=== PATIENT | female | born 1990 | race Two or more races ===

== ENCOUNTER 2021-12-12 16:22 | Emergency (ER) | payer SELFPAY ==
[2021-12-12] MEDS ORDERED: Sodium Chloride 0.9% 10 ML Syringe FLUSH PRN (16:38)
[2021-12-12] MEDS ORDERED: Ondansetron 4 MG/2 ML SDV IVPUSH ONE (16:38)
[2021-12-12] MEDS: Sodium Chloride 0.9% 1,000 ML IV ONE ×5 (16:55→23:24)
[2021-12-12] MEDS ORDERED: Morphine 2 MG/ML SYRINGE IVPUSH ONE ×2 (17:54→20:00)
[2021-12-12] MEDS ORDERED: Promethazine 25 MG in Sodium Chloride 0.9% 50 ML IV ONE ×2 (17:55→22:05)
[2021-12-12 19:19] LABS: CORONAVIRUS COVID-19 NAA NEGATIVE (NEGATIVE)
[2021-12-12] MEDS ORDERED: Lactated Ringers 1,000 ML IV ONE (19:43)
[2021-12-12] MEDS ORDERED: Metoclopramide 10 MG/2 ML SDV IVPUSH ONE (19:59)
[2021-12-12] MEDS: Potassium Chloride 10 MEQ in Premix Bag 1 BAG IV SCH ×2 (20:07→21:16)
[2021-12-12] MEDS ORDERED: Magnesium Sulfate/Water 2 GM in Premix Bag 1 BAG IV ONE ×2 (20:53→21:03)
[2021-12-12] MEDS ORDERED: Morphine 2 MG/ML SYRINGE IVPUSH PRN (22:05)
[2021-12-12] MEDS ORDERED: Sodium Chloride 0.9% 50 ML ONE (22:38)
[2021-12-12] MEDS ORDERED: LORazepam 2 MG/ML SDV IVPUSH ONE (23:18)
== END 2021-12-13 00:15 ==
LOC: JD.ED 16:22
DX: M53.2X2 Spinal instabilities, cervical region (principal); R11.2 Nausea with vomiting, unspecified; E87.6 Hypokalemia; E83.42 Hypomagnesemia; E87.2 Acidosis; R77.8 Other specified abnormalities of plasma proteins; E03.9 Hypothyroidism, unspecified; Z91.048 Other nonmedicinal substance allergy status; Z88.5 Allergy status to narcotic agent; Z79.899 Other long term (current) drug therapy; Z20.822 Contact with and (suspected) exposure to COVID-19
CPT/HCPCS: 0240U; 36415; 70450; 71045; 72125; 80053; 82947; 83605; 83690; 83735; 84484; 85007; 85027; 93005; 96361; 96365; 96366; 96367; 96368; 96375; 96376; 99285; J2060; J2270; J2405; J2550; J2765; J3475; J3480; J3490; J7030; 93010; J7120